=== PATIENT | male | born 1965 | race Caucasian/White ===

== ENCOUNTER → 2018-04-03 | Outpatient (CLI) | payer OTHER ==
[~2018-04-03] MED LIST: FLUT9.9S NS; MULT-224 PO
== END | disposition home or self-care (01) ==
LOC: STAR 14:41
PROVIDERS: ATTEND Surgery
DX: Z02.9 Encounter for administrative examinations, unspecified (principal)

== ENCOUNTER 2018-04-08 06:49 | Day surgery (SDC) | payer OTHER ==
[2018-04-03 15:07] VITALS: BP 118/77
[~2018-04-08] VITALS: Ht 185.4 cm; Wt 89.0 kg
[2018-04-08] MEDS ORDERED: LACTATED RINGERS 1,000 ML IV SCH (07:15)
[2018-04-08] MEDS ORDERED: LIDOCAINE-MPF 1%, 2ML INFIL ONE (07:30)
[2018-04-08] MEDS ORDERED: PROPOFOL 50 ML ONE (09:08)
[2018-04-08] MEDS ORDERED: FENTANYL PF 100 MCG/2ML ONE ×2 (09:09→10:29)
[2018-04-08] MEDS ORDERED: MIDAZOLAM 1 MG/ML, 2ML ONE (09:09)
[2018-04-08] MEDS ORDERED: PROPOFOL 10 MG/ML, 20ML ONE ×2 (09:12→09:42)
[2018-04-08] MEDS ORDERED: SUCCINYLCHOLINE 20 MG/ML, 10ML ONE (09:15)
[2018-04-08] MEDS ORDERED: MEPERIDINE/PF 25MG/0.5ML IVPush PRN (10:00)
[2018-04-08] MEDS ORDERED: HYDROcodone/APAP 7.5-325MG/15ML UDC PO PRN (10:00)
[2018-04-08] MEDS ORDERED: HYDROmorphone 1 MG/ML, 1ML IV PRN (10:00)
[2018-04-08] MEDS ORDERED: OXYcodone 5 MG/5 ML ORAL.SOL UDC PO PRN (10:00)
[2018-04-08] MEDS ORDERED: HYDROcodone/APAP 7.5-325MG/15ML UDC ONE (10:29)
[2018-04-08] MEDS: FENTANYL PF 100 MCG/2ML IV PRN ×3 (10:32→10:51)
[2018-04-08] MEDS ORDERED: ONDANSETRON 2MG/ML, 2ML ONE (11:10)
[2018-04-08] MEDS ORDERED: MORPHINE SULFATE 4 MG/ML, 1ML ONE ×2 (11:11→11:31)
[2018-04-08] MEDS: MORPHINE SULFATE 4 MG/ML, 1ML IVPush PRN ×4 (11:16→11:35)
[2018-04-08] MEDS ORDERED: ONDANSETRON 2MG/ML, 2ML IVPush ONE (11:30)
[2018-04-08] MEDS ORDERED: morphine SULFATE 10 MG/ML, 1ML IVPush PRN (12:30)
== END 2018-04-08 13:50 | disposition home or self-care (01) ==
LOC: OUT 06:49
PROVIDERS: ATTEND Surgery
DX: E04.1 Nontoxic single thyroid nodule (principal); Z98.890 Other specified postprocedural states
CPT/HCPCS: 60220; 88307; C1760; J0330; J2250; J2405; J2704; J3010; J7120

== ENCOUNTER → 2019-12-16 | Outpatient (CLI) | payer OTHER ==
[~2019-12-16] MED LIST changes: -MULT-224 PO; +MULT-642 PO; +OMNIPAQUE 350 MG/ML, 100ML BOTTLE ONE
== END | disposition home or self-care (01) ==
LOC: RAD 14:01
PROVIDERS: ATTEND Family Medicine
DX: K80.20 Calculus of gallbladder without cholecystitis without obstruction (principal); K57.30 Diverticulosis of large intestine without perforation or abscess without bleeding; N13.30 Unspecified hydronephrosis
CPT/HCPCS: 74177; Q9967

== ENCOUNTER 2020-01-21 08:32 | Outpatient (CLI) | payer OTHER ==
[~2020-01-21 08:32] MED LIST changes: -OMNIPAQUE 350 MG/ML, 100ML BOTTLE ONE
[2020-01-21] MEDS ORDERED: OMNIPAQUE 350 MG/ML, 100ML BOTTLE ONE (09:00)
== END 2020-01-21 23:59 | disposition home or self-care (01) ==
LOC: RAD 08:32
PROVIDERS: ATTEND Physician Assistant
DX: N13.30 Unspecified hydronephrosis (principal)
CPT/HCPCS: 74410; Q9967

== ENCOUNTER → 2020-03-31 | Outpatient (CLI) | payer OTHER ==
[~2020-03-31] MED LIST changes: +LEVO75TA PO
== END | disposition home or self-care (01) ==
LOC: STAR 15:26
PROVIDERS: ATTEND Surgery
DX: Z01.812 Encounter for preprocedural laboratory examination (principal); Z20.828 Contact with and (suspected) exposure to other viral communicable diseases
CPT/HCPCS: 36415; 87635

== ENCOUNTER 2020-04-05 05:59 | Day surgery (SDC) | payer OTHER ==
[~2020-04-05] VITALS: Ht 185.4 cm; Wt 94.0 kg
[2020-04-05 06:26] VITALS: BP 126/81
[2020-04-05] MEDS ORDERED: LACTATED RINGERS 1,000 ML IV SCH (06:30)
[2020-04-05] MEDS ORDERED: CHLORHEXIDINE 15 ML UDC MM STA (06:30)
[2020-04-05] MEDS ORDERED: EPINEPHRINE 1 MG/ML, 1ML ONE (06:54)
[2020-04-05] MEDS ORDERED: BUPIVACAINE/PF 0.5% ONE (06:54)
[2020-04-05] MEDS ORDERED: MIDAZOLAM 1 MG/ML, 2ML ONE (07:08)
[2020-04-05] MEDS ORDERED: FENTANYL PF 100 MCG/2ML ONE ×2 (07:09→08:26)
[2020-04-05] MEDS ORDERED: KETOROLAC 30 MG/1 ML ONE (07:31)
[2020-04-05] MEDS ORDERED: SUGAMMADEX 200 MG/2 ML IVPush ONE (07:31)
[2020-04-05] MEDS ORDERED: NEOSTIGMINE 1 MG/ML, 10ML ONE (07:56)
[2020-04-05] MEDS ORDERED: CEFAZOLIN 1,000 MG ONE (07:56)
[2020-04-05] MEDS ORDERED: DEXAMETHASONE 4 MG/ML, 1ML ONE (07:56)
[2020-04-05] MEDS ORDERED: GLYCOPYRROLATE 0.2MG/1ML, 5ML ONE (07:56)
[2020-04-05] MEDS ORDERED: ONDANSETRON 2MG/ML, 2ML ONE (07:56)
[2020-04-05] MEDS ORDERED: ROCURONIUM 10MG/ML,5ML ONE (07:56)
[2020-04-05] MEDS ORDERED: PROPOFOL 10 MG/ML, 20ML ONE (07:56)
[2020-04-05] MEDS ORDERED: PROMETHAZINE 25 MG/ML, 1ML ONE (08:22)
[2020-04-05] MEDS: FENTANYL PF 100 MCG/2ML IV PRN ×2 (08:30→08:40)
[2020-04-05] MEDS ORDERED: OXYcodone 5 MG/5 ML ORAL.SOL UDC ONE (08:58)
[2020-04-05] MEDS ORDERED: PROMETHAZINE 25 MG/ML, 1ML IVPush PRN (09:00)
[2020-04-05] MEDS ORDERED: LORazepam 2 MG/ML, 1ML IVPush PRN (09:00)
[2020-04-05] MEDS ORDERED: ACETAMINOPHEN 325 MG TABLET PO PRN (09:00)
[2020-04-05] MEDS ORDERED: MEPERIDINE/PF 25MG/0.5ML IVPush PRN (09:00)
[2020-04-05] MEDS ORDERED: METHOCARBAMOL 1,000 MG in DEXTROSE 5% 100 ML IV PRN (09:00)
[2020-04-05] MEDS ORDERED: OXYcodone 5 MG/5 ML ORAL.SOL UDC PO PRN (09:00)
[2020-04-05] MEDS ORDERED: HYDROmorphone 1 MG/ML, 1ML INJ IVPush PRN (09:00)
== END 2020-04-05 10:30 | disposition home or self-care (01) ==
LOC: OUT 05:59
PROVIDERS: ATTEND Surgery
DX: K80.10 Calculus of gallbladder with chronic cholecystitis without obstruction (principal); E89.0 Postprocedural hypothyroidism; Z79.890 Hormone replacement therapy; Z79.899 Other long term (current) drug therapy; Z88.0 Allergy status to penicillin; Z98.890 Other specified postprocedural states; Z80.3 Family history of malignant neoplasm of breast
CPT/HCPCS: 47562; 88304; J0171; J0690; J1100; J2250; J2405; J2550; J2704; J2710; J3010; J7120; J1885